=== PATIENT | female | born 1960 | race Caucasian/White ===

== ENCOUNTER 2021-03-08 18:47 | Inpatient (IN) | payer BC ==
[2021-03-08] MEDS ORDERED: Sodium Chloride 0.9% 10 ML Syringe FLUSH PRN (19:14)
[2021-03-08] MEDS ORDERED: Ondansetron 4 MG/2 ML SDV IVPUSH ONE (19:14)
[2021-03-08] MEDS ORDERED: HYDROmorphone 1 MG/ML Syringe IVPUSH ONE (19:14)
--- NOTE | 2021-03-08 19:14 | EDM.PDOC ---
ED HPI GENERAL MEDICAL PROBLEM - General Chief Complaint: Abdominal Pain Stated Complaint: STOMACH PAIN Time Seen by Provider: 03/08/21 19:06 Source of Information: Reports: Patient History Limitations: Reports: No Limitations - History of Present Illness INITIAL COMMENTS - FREE TEXT/NARRATIVE: Page is a 60-year-old female from [place], [place] who is in town for a family reunion and yesterday started to develop abdominal pain and she thought she was constipated so she took some laxatives and did have a small output today but has had increasing abdominal pain and now has developed a fever. Patient's pain is predominantly below the umbilicus and in the lower right lower quadrant. Throughout the day it is continued to worsen now causing nausea but no vomiting. Patient has not had any abdominal surgeries. The patient does have a history of morbid obesity, recently diagnosed with type 2 diabetes and started on Metformin, hypertension for which she takes lisinopril hydrochlorothiazide, and hyperlipidemia. The patient reports that she forgot to take her lisinopril and hydrochlorothiazide this morning. She has had diminished appetite and last ate a few bites of fish around 1:00 this afternoon. She was going to tried to drive home but the abdominal pain was worsening so her family insisted that she come in to the ED the evaluated. They were concerned that it could be her gallbladder. Numerous family members have had problems with gallbladder and are status post cholecystectomy. Her fever upon arrival is 101.2 F. The patient had peritoneal signs on the way into the ER feeling every bump that the car hit on the right end. She is rating her pain at an 8 out of 10. right lower abd Pain Score (Numeric/FACES): 5 - Related Data Allergies Allergy/AdvReac Type Severity Reaction Status Date / Time No Known Allergies Allergy Verified 03/08/21 19:24 Home Meds: Home Meds Hydrochlorothiazide/Lisinopril [Lisinopril/HCTZ 20-12.5 MG] 1 tab PO DAILY 04/23/19 [History] Ibuprofen 200 - 600 mg PO ASDIRECTED PRN 04/23/19 [History] metFORMIN [Glucophage XR] 500 mg PO BID 03/08/21 [History] Past Medical History HEENT History: Reports: None Cardiovascular History: Reports: Hypertension Respiratory History: Reports: None Gastrointestinal History: Reports: GERD Genitourinary History: Reports: None 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: Musculoskeletal History: Reports: None Neurological History: Reports: None Psychiatric History: Reports: None Endocrine/Metabolic History: Reports: Obesity/BMI 30+ Hematologic History: Reports: None Immunologic History: Reports: None Oncologic (Cancer) History: Reports: None Dermatologic History: Reports: None - Past Surgical History Head Surgeries/Procedures: Reports: None HEENT Surgical History: Reports: None Female Surgical History: Reports: Section, Tubal Ligation ED ROS GENERAL - Review of Systems Review Of Systems: See Below Constitutional: Reports: Fever, Chills, Malaise, Decreased Appetite HEENT: Reports: No Symptoms Respiratory: Reports: No Symptoms Cardiovascular: Reports: No Symptoms Endocrine: Reports: No Symptoms GI/Abdominal: Reports: Abdominal Pain (Periumbilical and right lower quadrant pain), Constipation, Decreased Appetite, Nausea : Reports: No Symptoms Musculoskeletal: Reports: No Symptoms Skin: Reports: No Symptoms Neurological: Reports: No Symptoms Psychiatric: Reports: No Symptoms Hematologic/Lymphatic: Reports: No Symptoms Immunologic: Reports: No Symptoms ED EXAM, GI/ABD - Physical Exam Exam: See Below Exam Limited By: No Limitations General Appearance: Alert, Anxious, Moderate Distress Eyes: Bilateral: EOMI Throat/Mouth: Normal Inspection, Normal Oropharynx, Normal Voice, No Airway Compromise Head: Atraumatic, Normocephalic Neck: Normal Inspection, Supple, Full Range of Motion. No: Lymphadenopathy (R), Lymphadenopathy (L) Respiratory/Chest: No Respiratory Distress, Lungs Clear, Normal Breath Sounds Cardiovascular: Normal Peripheral Pulses, Regular Rate, Rhythm, No Murmur GI/Abdominal Exam: Normal Bowel Sounds, Guarding (Right lower quadrant), Rebound, Tender (Severe tenderness in the right lower quadrant) Extremities: Normal Inspection Neurological: Alert, Oriented, Normal Cognition, No Motor/Sensory Deficits Psychiatric: Normal Affect, Normal Mood Skin Exam: Warm, Dry, Intact, Normal Color Lymphatic: No Adenopathy Course - Vital Signs Last Recorded V/S: Last Vital Signs Temp 38.8 C H 03/08/21 19:55 Pulse 112 H 03/08/21 19:55 Resp 18 03/08/21 19:55 BP 162/82 H 03/08/21 19:55 Pulse Ox 93 L 03/08/21 19:55 - Orders/Labs/Meds Orders: Active Orders 24 hr Category Date Time Status Abdomen Pelvis wo Cont [CT] Stat Exams 03/08/21 19:19 Taken UA W/MICROSCOPIC [URIN] Stat Lab 03/08/21 19:15 Ordered Sodium Chloride 0.9% [Normal Saline] 1,000 ml Med 03/08/21 19:15 Active IV ASDIRECTED Sodium Chloride 0.9% [Saline Flush] Med 03/08/21 19:14 Active 10 ml FLUSH ASDIRECTED PRN Saline Lock Insert [OM.PC] Routine Oth 03/08/21 19:14 Ordered Medication Orders Sodium Chloride (Normal Saline) 1,000 mls @ 999 mls/hr IV ASDIRECTED REESE Last Admin: 03/08/21 19:47 Dose: 999 mls/hr Documented by: ADRIÁN Sodium Chloride (Sodium Chloride 0.9% 10 Ml Syringe) 10 ml FLUSH ASDIRECTED PRN PRN Reason: Keep Vein Open Last Admin: 03/08/21 19:47 Dose: 10 ml Documented by: ADRIÁN Labs: Laboratory Tests 03/08/21 03/08/21 03/08/21 Range/Units 19:20 19:20 19:20 WBC 9.9 (4.5-11.0) K/uL RBC 4.07 (3.30-5.50) M/uL Hgb 12.3 (12.0-15.0) g/dL Hct 36.5 (36.0-48.0) % MCV 90 (80-98) fL MCH 30 (27-31) pg MCHC 34 (32-36) % Plt Count 229 (150-400) K/uL Neut % (Auto) 88.2 H (36-66) % Lymph % (Auto) 5.3 L (24-44) % Clinton % (Auto) 6.2 H (2-6) % Eos % (Auto) 0.1 L (2-4) % Baso % (Auto) 0.2 (0-1) % Sodium 136 L (140-148) mmol/L Potassium 3.6 (3.6-5.2) mmol/L Chloride 97 L (100-108) mmol/L Carbon Dioxide 24 (21-32) mmol/L Anion Gap 18.6 H (5.0-14.0) mmol/L BUN 23 H (7-18) mg/dL Creatinine 1.4 H (0.6-1.0) mg/dL Est Cr Clr Drug Dosing 34.22 mL/min Estimated GFR (MDRD) 38 L (>60) Glucose 171 H (74-106) mg/dL Lactic Acid 1.1 (0.4-2.0) mmol/L Calcium 9.1 (8.5-10.1) mg/dL Total Bilirubin 0.9 (0.2-1.0) mg/dL AST 19 (15-37) U/L ALT 36 (12-78) U/L Alkaline Phosphatase 64 (46-116) U/L C-Reactive Protein 13.78 H (0.0-0.3) mg/dL Total Protein 7.9 (6.4-8.2) g/dL Albumin 4.0 (3.4-5.0) g/dL Globulin 3.9 H (2.3-3.5) g/dL Albumin/Globulin Ratio 1.0 L (1.2-2.2) Meds: Medications Generic Name Dose Route Start Last Admin Trade Name Freq PRN Reason Stop Dose Admin Sodium Chloride 1,000 mls @ 999 mls/hr 03/08/21 19:15 03/08/21 19:47 Normal Saline IV 999 mls/hr ASDIRECTED REESE Administration Sodium Chloride 10 ml 03/08/21 19:14 03/08/21 19:47 Sodium Chloride 0.9% 10 Ml Syringe FLUSH 10 ml ASDIRECTED PRN Administration Keep Vein Open Discontinued Medications Generic Name Dose Route Start Last Admin Trade Name [place] PRN Reason Stop Dose Admin Hydromorphone HCl 1 mg 03/08/21 19:14 03/08/21 19:26 Hydromorphone 1 Mg/Ml Syringe IVPUSH 03/08/21 19:15 1 mg ONETIME ONE Administration Ondansetron HCl 4 mg 03/08/21 19:14 03/08/21 19:26 Ondansetron 4 Mg/2 Ml Sdv IVPUSH 03/08/21 19:15 4 mg ONETIME ONE Administration - Radiology Interpretation Free Text/Narrative:: The CT of the abdomen and pelvis without contrast demonstrating a large appendicolith, significant enlargement of the appendix with periappendiceal fat stranding consistent with acute appendicitis. - Re-Assessments/Exams Free Text/Narrative Re-Assessment/Exam: 03/08/21 20:05 upon arrival, the patient had an IV established and was given liter of IV normal saline, Dilaudid 1 mg IV, and Zofran 4 mg IV for her pain and nausea. I reviewed the patient's labs showing a leukocyte count of 9.9 with 88% neutrophils. Her hemoglobin is 12.3 with a hematocrit of 36.5 and a platelet count of 229,000. The patient's comprehensive metabolic panel is significant for a sodium of 136, potassium 3.6, chloride of 97, bicarbonate of 24, BUN of 23 with a creatinine of 1.4 and a glucose of 171. The patient's C- reactive protein is elevated at 13.78. The patient had a CT of the abdomen and pelvis demonstrating an acute appendicolith with appendiceal enlargement, wall thickening, and periappendiceal stranding of the fat consistent with acute appendicitis. There was no evidence for a phlegmon or abscess. There was no free air in the abdomen. Discussed the case with Dr. Finch will arrange for admission of the patient and will take her to the OR tomorrow for an appendectomy. 03/08/21 20:19 the patient has had both of her COVID-19 vaccines and has passed the 14-day window from the second so we did not test for COVID-19. Departure - Departure Time of Disposition: 20:10 Disposition: Admitted As Inpatient 67 Clinical Impression: Acute appendicitis with generalized peritonitis Qualifiers: Appendicitis gangrene presence: without gangrene Appendicitis perforation presence: unspecified whether perforation present Appendicitis abscess presence: without abscess Qualified Code(s): K35.20 - Acute appendicitis with generalized peritonitis, without abscess - Discharge Information Referrals: PCP,None [Primary Care Provider] - Forms: ED Department Discharge Sepsis Event Note (ED) - Focused Exam Vital Signs: Vital Signs Temp Pulse Resp BP Pulse Ox 03/08/21 19:55 38.8 C H 112 H 18 162/82 H 93 L 03/08/21 19:02 38.8 C H 112 H 18 162/82 H 93 L - Problem List & Annotations (1) Acute appendicitis with generalized peritonitis SNOMED Code(s): 63473344 Code(s): K35.20 - ACUTE APPENDICITIS WITH GEN PERITONITIS, WITHOUT ABSCESS Status: Acute Priority: High Current Visit: Yes Qualifiers: Appendicitis gangrene presence: without gangrene Appendicitis perforation presence: unspecified whether perforation present Appendicitis abscess presence: without abscess Qualified Code(s): K35.20 - Acute appendicitis with generalized peritonitis, without abscess - Problem List Review Problem List Initiated/Reviewed/Updated: Yes - My Orders Last 24 Hours: My Active Orders 03/08/21 19:14 Sodium Chloride 0.9% [Saline Flush] 10 ml FLUSH ASDIRECTED PRN Saline Lock Insert [OM.PC] Routine 03/08/21 19:15 UA W/MICROSCOPIC [URIN] Stat Sodium Chloride 0.9% [Normal Saline] 1,000 ml IV ASDIRECTED 03/08/21 19:19 Abdomen Pelvis wo Cont [CT] Stat - Assessment/Plan Last 24 Hours: My Active Orders 03/08/21 19:14 Sodium Chloride 0.9% [Saline Flush] 10 ml FLUSH ASDIRECTED PRN Saline Lock Insert [OM.PC] Routine 03/08/21 19:15 UA W/MICROSCOPIC [URIN] Stat Sodium Chloride 0.9% [Normal Saline] 1,000 ml IV ASDIRECTED 03/08/21 19:19 Abdomen Pelvis wo Cont [CT] Stat
[2021-03-08] MEDS ORDERED: Sodium Chloride 0.9% 1,000 ML IV SCH (19:15)
[2021-03-08] MEDS ORDERED: Acetaminophen 325 MG Tab PO ONE (20:21)
[2021-03-08] MEDS ORDERED: diphenhydrAMINE 50 MG/ML SDV IVPUSH PRN (20:34)
--- NOTE | 2021-03-08 20:37 | CRLCT ---
INDICATION: Right lower quadrant abdominal pain. TECHNIQUE: Noncontrast CT scan of the abdomen and pelvis. FINDINGS: The lung bases are unremarkable. No focal abnormalities identified in the visualized portions of the liver, spleen, pancreas, left adrenal gland, and kidneys. No hydronephrosis. No uroliths. 1.4 cm right adrenal nodule measures 17 Hounsfield units. Enlarged appendix contains a few appendicoliths and has significant periappendiceal edema. The remainder of the GI tract is incompletely distended but shows no gross abnormalities. No retroperitoneal, pelvic sidewall, or mesenteric adenopathy. IMPRESSION: 1. Acute appendicitis. No evidence of appendiceal rupture. 2. Right adrenal nodule. Recommend further evaluation with an adrenal CT scan on a routine basis. Dictated by Barry Anthony MD @ 03/08/2021 8:34:44 PM Please note that all CT scans at this facility use dose modulation, iterative reconstruction, and/or weight-based dosing when appropriate to reduce radiation dose to as low as reasonably achievable. Dictated by: Barry Anthony MD @ 03/08/2021 20:34:55 (Electronically Signed)
[2021-03-08] MEDS ORDERED: Glucagon,Human Recombinant 1 MG Vial IM PRN (20:55)
[2021-03-08] MEDS ORDERED: 50% Dextrose in Water 50 ML Syringe IVPUSH PRN (20:55)
[2021-03-08] MEDS ORDERED: Sodium Chloride 0.9% 50 ML ONE (21:00)
[2021-03-08] MEDS: Piperacillin/Tazobactam/Dext 50 ML IV SCH (21:18)
[2021-03-08] MEDS: Sodium Chloride 0.9% 1,000 ML IV SCH (21:19)
[2021-03-08] MEDS ORDERED: Ondansetron 4 MG/2 ML SDV IVPUSH PRN (21:53)
[2021-03-08] MEDS ORDERED: Scopolamine 1.5 MG Transdermal Patch TOP PRN (21:54)
[2021-03-08] MEDS ORDERED: Nicotine 14 MG/24 Hr Patch TRDERM PRN (21:56)
[2021-03-08] MEDS ORDERED: Promethazine 25 MG/ML SDV IV PRN (21:56)
[2021-03-08] MEDS: fentaNYL 100 MCG/2 ML SDV IVPUSH PRN (22:47)
[2021-03-08] MEDS ORDERED: Acetaminophen 325 MG Tab PO PRN (22:53)
[2021-03-09] MEDS: fentaNYL 100 MCG/2 ML SDV IVPUSH PRN ×2 (01:48→06:04)
[2021-03-09] MEDS ORDERED: Sodium Chloride 0.9% 50 ML ONE (02:43)
[2021-03-09] MEDS: Piperacillin/Tazobactam/Dext 50 ML IV SCH (03:17)
[2021-03-09] MEDS ORDERED: Bupivacaine 0.5%/EPINEPHrine 1:200,000 50 ML MDV ONE (06:53)
[2021-03-09] MEDS ORDERED: fentaNYL 250 MCG/5 ML SDV ONE (07:23)
[2021-03-09] MEDS ORDERED: Rocuronium 50 MG/5 ML Vial ONE (07:23)
[2021-03-09] MEDS ORDERED: Dexamethasone 4 MG/ML SDV ONE (07:23)
[2021-03-09] MEDS ORDERED: Glycopyrrolate 0.2 MG/ML 5 ML MDV ONE (07:23)
[2021-03-09] MEDS ORDERED: Succinylcholine 200 MG/10 ML MDV ONE (07:23)
[2021-03-09] MEDS ORDERED: Propofol 200 MG/20 ML SDV ONE (07:23)
[2021-03-09] MEDS ORDERED: Ondansetron 4 MG/2 ML SDV ONE (07:23)
[2021-03-09] MEDS ORDERED: Neostigmine Methylsulfate 1 MG/ML 5 ML Syringe ONE (07:23)
[2021-03-09] MEDS: Piperacillin/Tazobactam/Dext 3.375 GM in Premix Bag 1 BAG IV SCH ×3 (08:25→20:13)
[2021-03-09] MEDS ORDERED: Meropenem 500 MG SDV ONE (09:04)
[2021-03-09] MEDS ORDERED: Sodium Chloride 0.9% 10 ML ONE (09:04)
--- NOTE | 2021-03-09 09:18 | CONS ---
DATE OF SERVICE: 03/08/2021 REFERRING PHYSICIAN: CONSULTING PHYSICIAN: Glenn Finch MD REASON FOR CONSULTATION: Abdominal pain. HISTORY OF PRESENT ILLNESS: This is a 60-year-old female who had an acute episode of abdominal pain. This is a new problem for her. This originally started periumbilical and was rotated to the right lower quadrant. Pain is a 3 to 4 out 10 and intermittent. This is associated with some nausea. No vomiting. PAST MEDICAL HISTORY: section, hypertension, and gastroesophageal reflux disease. SOCIAL HISTORY: She is not a smoker. FAMILY HISTORY: Noncontributory. REVIEW OF SYSTEMS: CONSTITUTIONAL: Appropriate for condition. HEENT: No symptoms. RESPIRATORY: No shortness of breath. CARDIOVASCULAR: No history of myocardial infarction. ENDOCRINE: No symptoms. GASTROINTESTINAL: As above. GENITOURINARY: No dysuria. MUSCULOSKELETAL: No symptoms. PSYCHIATRIC: No symptoms. Remainder of review of systems was reviewed and is negative. PHYSICAL EXAMINATION: VITAL SIGNS: Temperature 99.9. HEENT: Pupils are equal. NECK: Supple. LUNGS: Clear. CARDIOVASCULAR: Regular rhythm and rate. RESPIRATORY: Lungs are clear to auscultation bilaterally. ABDOMEN: Obese. Pain with palpation in the right lower quadrant. EXTREMITIES: Full range of motion. NEUROLOGICAL: Oriented x3. PSYCHIATRIC: No gross depression. LABORATORY RESULTS: Show normal white blood cell count. IMAGING: I did review the CT scan, which shows acute appendicitis without evidence of rupture or abscess. ASSESSMENT AND PLAN: To the OR for laparoscopic appendectomy in the morning. We discussed risks, benefits, alternatives, and limitations including, but not limited to infection, bleeding, perforation, false positives, false negatives, possibility of open surgery, abscess formation, sepsis, and other risks not listed here. The patient understands these risks and wishes to proceed. Glenn Finch MD /[id number]
[2021-03-09] MEDS ORDERED: Lactated Ringers 1,000 ML ONE (09:26)
--- NOTE | 2021-03-09 09:30 | PN ---
DATE OF SERVICE: 03/09/2021 SUBJECTIVE: The patient is doing well. She is stable. OBJECTIVE: VITAL SIGNS: Stable. CARDIOVASCULAR: Regular rate. RESPIRATORY: Lungs are clear to auscultation bilaterally. ABDOMEN: Appropriate for condition. ASSESSMENT AND PLAN: To the operating room this morning for appendectomy. Risks, benefits, alternatives, and limitations were discussed including infection, bleeding, perforation of abdominal structures, abscess, open possibility, sepsis, and other risks not listed here were explained to the patient, and they wished to proceed. Glenn Finch MD /[id number]
[2021-03-09] MEDS ORDERED: hydrOXYzine HCL 100 MG/2 ML SDV IM ONE (09:42)
[2021-03-09] MEDS: Morphine 4 MG/ML Syringe IV PRN ×2 (10:33→13:49)
[2021-03-09] MEDS: Acetaminophen/HYDROcodone 325-5 MG Tab PO PRN ×3 (10:38→20:12)
[2021-03-09] MEDS: Insulin Lispro 100 Unit/ML 3 ML KwikPen SUBCUT SCH ×3 (11:22→18:46)
[2021-03-09] MEDS: Ketoconazole 2% Crm 30 GM Tube TOP SCH ×2 (13:40→20:25)
[2021-03-09] MEDS: Sodium Chloride 0.9% 1,000 ML IV SCH ×2 (13:40→22:49)
--- NOTE | 2021-03-09 16:31 | OR ---
DATE OF PROCEDURE: 03/09/2021 SURGEON: Glenn Finch MD PROCEDURE: Laparoscopic appendectomy. FINDINGS: Perforated appendicitis. COMPLICATIONS: None. RN DERMATOLOGY: None. ANESTHESIA: General. RISKS: Risks, benefits, alternatives, and limitations including, but not limited to infection, bleeding, perforation, false positives and false negatives, requirement for open surgery, abscess formation, sepsis, and other risks not listed here were explained to the patient who wished to proceed. PROCEDURE IN DETAIL: The patient was placed in supine position. A supraumbilical curvilinear incision was made. A Veress needle was used to enter the abdomen without abnormality. A drop test was performed without abnormality. The abdomen was subsequently insufflated. Two additional 5 mm ports were entered under direct visualization. The ileocecal valve was identified and the appendiceal base was identified, which was noted to be perforated and partially obliterated. This was transected using a verma load stapler. Because of the inflammatory nature of this, the appendix was opened on the back table and a lumen was noted, although this was very ablated appendix. The right lower quadrant fluid was cultured. Minimal bleeding was controlled with electrocautery. This was irrigated with 3 L of irrigation including 1 L of meropenem. Examination for the remainder of the appendix was commenced and none was noted. A 10 flat Malik-Mora drain was placed in the right upper quadrant. Prior to this, the majority of the liquid was removed. The abdomen was desufflated. The wounds were closed with 3-0 Vicryl and 4-0 Vicryl in interrupted fashion. Dressings were applied. The patient tolerated the procedure well. Glenn Finch MD /[id number]
--- NOTE | 2021-03-09 19:44 | OR ---
DATE OF PROCEDURE: 03/09/2021 SURGEON: Glenn Finch MD PROCEDURES: 1. Bilateral TAP blocks. 2. Bilateral rectus sheath blocks. COMPLICATION: None. 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 RISKS: Risks, benefits, alternatives, and limitations including, but not limited to infection, bleeding, and injury to abdominal structures were explained to the patient and she wished to proceed. PROCEDURE IN DETAIL: The patient was placed in supine position. The left transversus plane was identified first. This was injected with approximately 20% of the solution. This was repeated on the right side. The rectus sheaths were then injected bilaterally using 20% of the solution respectively. At no time was the needle blindly advanced. At no time did the needle pass the peritoneum. The patient tolerated the procedure well. Glenn Finch MD /[id number]
[2021-03-10] MEDS: Acetaminophen/HYDROcodone 325-5 MG Tab PO PRN ×5 (02:34→23:45)
[2021-03-10] MEDS: Piperacillin/Tazobactam/Dext 3.375 GM in Premix Bag 1 BAG IV SCH ×4 (02:34→20:43)
[2021-03-10] MEDS: Morphine 4 MG/ML Syringe IV PRN (03:08)
[2021-03-10] MEDS: Sodium Chloride 0.9% 1,000 ML IV SCH (07:20)
--- NOTE | 2021-03-10 10:57 | PN ---
DATE OF SERVICE: 03/10/2021 SUBJECTIVE: The patient is doing well today. Pain is controlled. No nausea, vomiting, shortness of breath, or chest pain. She is tolerating diet. OBJECTIVE: VITAL SIGNS: Stable. CARDIOVASCULAR: Regular rhythm and rate. RESPIRATORY: Lungs clear to auscultation bilaterally. ABDOMEN: ARACELI output is serosanguineous. ASSESSMENT: Status post appendectomy. PLAN: We will remove her Bonilla today. We will work on diet and activity. She will remain in the hospital for a few days of IV antibiotics. Glenn Finch MD /[id number]
[2021-03-10] MEDS: Nystatin Topical Powder 15 GM Bottle TOP SCH ×3 (11:16→20:45)
[2021-03-10] MEDS: Ketoconazole 2% Crm 30 GM Tube TOP SCH ×2 (11:17→20:44)
[2021-03-10] MEDS: Enoxaparin 40 MG/0.4 ML Syringe SUBCUT SCH (15:44)
[2021-03-11] MEDS: Piperacillin/Tazobactam/Dext 3.375 GM in Premix Bag 1 BAG IV SCH ×3 (02:00→14:57)
[2021-03-11] MEDS: Acetaminophen/HYDROcodone 325-5 MG Tab PO PRN ×4 (05:10→15:27)
[2021-03-11] MEDS: Nystatin Topical Powder 15 GM Bottle TOP SCH ×2 (08:21→13:38)
[2021-03-11] MEDS: Ketoconazole 2% Crm 30 GM Tube TOP SCH (08:21)
[2021-03-11] MEDS ORDERED: Magnesium Hydroxide 400 MG/5 ML Susp 30 ML Cup PO SCH (09:00)
--- NOTE | 2021-03-11 10:45 | PN ---
DATE OF SERVICE: 03/11/2021 SUBJECTIVE: The patient continues to improve. Pain is well controlled. No nausea, vomiting, shortness of breath, or chest pain. She is passing gas. OBJECTIVE: VITAL SIGNS: Stable. CARDIOVASCULAR: Regular rhythm and rate. RESPIRATORY: Lungs clear to auscultation bilaterally. ABDOMEN: Incision is healing well. ASSESSMENT: Status post laparoscopic appendectomy. PLAN: The patient will be discharged once she is having bowel movements. Continue to advance diet and await GI function. Glenn Finch MD /[id number]
[2021-03-11] MEDS: Enoxaparin 40 MG/0.4 ML Syringe SUBCUT SCH (14:56)
== END 2021-03-11 16:15 | disposition home or self-care (01) | DRG 225 ==
LOC: JP.ED 18:47 → JP.MS 20:19
PROVIDERS: ADMIT Surgery; ATTEND Surgery
PROC: 0DTJ4ZZ Resection of Appendix, Percutaneous Endoscopic Approach (ICD-10-PCS; principal; 2021-03-09)
PROC: 3E0T3BZ Introduction of Anesthetic Agent into Peripheral Nerves and Plexi, Percutaneous Approach (ICD-10-PCS; 2021-03-09)
DX: K35.20 Acute appendicitis with generalized peritonitis, without abscess (principal); I10 Essential (primary) hypertension; K21.9 Gastro-esophageal reflux disease without esophagitis; Z98.890 Other specified postprocedural states; E66.9 Obesity, unspecified; Z68.42 Body mass index [BMI] 45.0-49.9, adult
CPT/HCPCS: 36415; 74176; 80048; 80053; 81001; 82947; 83605; 85025; 86140; 87070; 87075; 87205; 88304; 96374; 96375; 99284; 99285-25; A9270-GY; J0171; J0330; J1100; J1170; J1650; J1815; J2185; J2270; J2405; J2543; J2704; J2710; J2795; J3010; J3410; J3490; J7030; J7120